=== PATIENT | female | born 2005 | race Hispanic/Latino ===

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

== ENCOUNTER 2024-01-17 18:10 | Emergency (ER) | payer SELFPAY ==
[~2024-01-17 18:10] MED LIST changes: +LEVOTHYROXIN50 MCG PO; +NAPROXEN500 MG PO
[2024-01-17 19:05] VITALS: BP 0/0
== END 2024-01-17 19:05 | disposition left against medical advice (07) | DRG 179 ==
LOC: ED 18:10 → LWOBS 19:05
DX: U07.1 COVID-19 (principal); Z53.21 Procedure and treatment not carried out due to patient leaving prior to being seen by health care provider

== ENCOUNTER 2024-06-21 07:18 | Emergency (ER) | payer MEDICAID ==
[~2024-06-21] VITALS: Ht 160 cm; Wt 86.1 kg
[2024-06-21] VITALS (7 sets, daily range): BP systolic 97–126; BP diastolic 68–87
[2024-06-21] MEDS ORDERED: LIDOCAINE VISCOUS 2% 15 ML UDC PO ONE (07:40)
[2024-06-21] MEDS ORDERED: ONDANSETRON HCl 4 MG/2 ML SDV IV ONE (07:40)
[2024-06-21] MEDS ORDERED: ALUM & MAG HYDROX-SIMETHICONE 30 ML PO ONE (07:40)
[2024-06-21] MEDS ORDERED: FAMOTIDINE 10MG/ML 2ML SDV IV ONE (07:40)
[2024-06-21 08:03] LABS: BASO% 0.6 % (0-3); EOS% 1.4 % (0-8); HEMATOCRIT 45.7 % (37.0-47.0); IMMATURE GRANULOCYTES 0.2 % (0.0-5.0); LYMPH% 37.2 % (15-41); MEAN CELL VOLUME 95.2 fL CALC (80.0-100.0); MEAN CORPUSCULAR HGB 31.3 pG CALC (26.0-32.0); MEAN CORPUSCULAR HGB CONC 32.8 g/dL CAL (32.0-36.0); MONO% 9.9 % (2-13); NEUT# 4.27 thou/uL (2.00-7.15); NEUT% 50.7 % (42-76); RED BLOOD COUNT 4.8 mill/uL (4.20-5.60); RED CELL DISTRI WIDTH 12.4 % (11.5-15.5)
[2024-06-21 08:10] LABS: ALBUMIN 5.1 g/dL (3.2-5.0); CREATININE 0.7 mg/dL (0.5-1.0); POTASSIUM 3.7 mmol/l (3.5-5.1); TOTAL PROTEIN 8.6 g/dL (6.3-8.2)
[2024-06-21 08:12] LABS: BILIRUBIN, TOTAL 0.6 mg/dL (0.02-1.3)
[2024-06-21 08:27] LABS: URINE BILIRUBIN - DIPSTICK Negative (NEGATIVE); URINE BLOOD DIPSTICK Negative (NEGATIVE); URINE GLUCOSE - DIPSTICK Negative (NEGATIVE); URINE KETONE Trace mg/dL (NEGATIVE); URINE LEUK ESTERASE Negative (NEGATIVE); URINE NITRITE - DIPSTICK Negative (Negative); URINE PH 5.5 (4.5-8.0); URINE PROTEIN - DIPSTICK Negative (NEG-TRACE); URINE SPECIFIC GRAVITY >=1.030; URINE UROBILINOGEN - DIPSTICK 0.2 E.U./dL (0.2)
[2024-06-21 08:28] LABS: URINE COLOR Yellow
[2024-06-21] MEDS ORDERED: ZOFRAN4 MG/TAB PO (08:34)
[2024-06-21] MEDS ORDERED: PROTONIX40 MG PO (08:34)
== END 2024-06-21 08:51 | disposition home or self-care (01) ==
LOC: ED 07:18
PROVIDERS: Emergency Medicine
DX: K29.70 Gastritis, unspecified, without bleeding (principal); E03.9 Hypothyroidism, unspecified; Z20.822 Contact with and (suspected) exposure to COVID-19
CPT/HCPCS: J2405